=== PATIENT | female | born 1990 | race Caucasian/White ===

== ENCOUNTER 2022-11-23 12:00 | Outpatient (RCR) | payer MEDICARE, MEDICAID, SELFPAY ==
--- NOTE | 2022-11-22 07:18 | HO.PHP ---
Clients case was reviewed and opened today in treatment team.
[2022-11-22 12:23] VITALS: BP 116/66; PULSE 80; TEMP 37.6
[2022-11-22 12:26] VITALS: BMI 20.5
--- NOTE | 2022-11-22 13:17 | PC.ADMIT ---
Patient is a 32 year old female who was referred to [facility] from [facility] where patient participated in tx from 10/10-10/30/22. Patient reports depression with passive SI, denied plan or intent, increased anxiety and feeling overwhelmed. Reports taking a leave of absence from her job d/t her symptoms. 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 She feels she is unable to handle working. Has difficulty keeping a job and fears she will never be able to work and support herself d/t her symptoms. Patient reports she has been hitting herself since 2018. She also reports struggling with many medical complaints and feeling frustrated as she reports she is not getting any answers from medical coordinator pesticide use she has seen. She reports seeing recently a neurologist for migraines, seeing PCP for fast heart rate, and has an upcoming appointment with an ENT for difficulty swallowing certain foods as she gags when the food is in her mouth. Reports history of Jaw pain however not currently and her dentist referred her to Physical therapy. Patient reports she recently fired her therapist as it was not a good fit. She reports she has been doing DBT at [facility] for years, however she is unsure she wants to continue at this time. Patient is alert and oriented x4. Calm and cooperative. Presented with depressed mood and anxious affect. Reports passive SI, no plan or intent. Patient given a copy of her safety plan if needed. Reviewed her safety plan with her.
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
--- NOTE | 2022-11-23 07:17 | HO.PHP ---
Clients case was reviewed and opened today in treatment team.
== END 2022-11-23 23:59 | disposition home or self-care (01) ==
LOC: HO.PHPA 12:00
PROVIDERS: Visit Provider Psychiatry & Neurology Psychiatry
DX: F31.81 Bipolar II disorder (principal); F41.1 Generalized anxiety disorder; F90.2 Attention-deficit hyperactivity disorder, combined type; Z79.899 Other long term (current) drug therapy
CPT/HCPCS: 90791; 90853

== ENCOUNTER 2023-03-27 10:28 | Outpatient (AMB) | payer MEDICAID, SELFPAY ==
[2023-03-27 10:31] VITALS: BMI 20.1
--- NOTE | 2023-03-27 10:31 | MHC.AMNUTRGE ---
Intake VS Expanded 03/27/23 10:31 03/27/23 12:26 Height 5 ft 5 in 5 ft 5 in Weight 120 lb 13.013 oz 121 lb BMI 20.1 20.1 Intake Visit Reasons: Dysphagia Allergies topiramate [From Topamax] Adverse Reaction (Verified 11/22/22 12:18) Suicidal tramadol Adverse Reaction (Verified 11/22/22 12:18) Fainting HPI Nutrition Presentation Details Pt presents for MNT initial visit for dysphagia. The Pt was referred by PCP, ROCÍO Delacruz from [facility] Pt reports having met with ENT in 02/2023 and had swallow evaluation yesterday will have appt in the next couple of weeks to discuss results. Pt has hx of bipoloar disorder, ADHD and depression. Pt reports baseline wt at 130 lbs ( when taking topomax) , prior to that was on risperidone and her weight was 145 lbs ) . Pt reports following up with psychiatrist on a regular basis, was on rehab in 11/2022 at [facility] [place]. Pt verbalizes comfortable weight at 130 lbs. Pt reports she is unsure what causes what. She reports eating a variety of foods and then not able to swallow or gagging after having eaten part of the meal (example able to eat and tolerate croissant with egg, chaves and cheese but not hash browns. Pt also reports not choosing foods she used to have before due to concerns that she may not be able to tolerate them (ex meatloaf/potatoes). Pt denies vomiting, denies diarrhea. Reports having daily soft bowel movement 24 hr food recall B: applesauce and oatmeal made with whole milk (sometimes adds raisins and reports doing well with raisins) or Mongolian muffin with peanut butter and latte with whole milk and sugar L: croissant (with egg chaves, cheese ) reports eating it with no problem, but not able to eat hash brown, drinks tea or at hot table - ruddy santo ( 1/2 of the panini) ice tea peach flavor or edgardo abena D: if not eating home made meal then will have peanut butter sandwich or cereal with whole milk snack on ensure - now will be switching to higher calorie ensure 350 vs 180 calories Physical activity: swimming 3 days and 2 days a week ( 30 -45 min) , reports slow movements like stretches, no jumping ETOH/SMoking: denies WJD-Gqiyclm-Nf.Jeor Equation Height 5 ft 5 in Weight 121 lb Resting Metabolic Rate 1266.65 Calculated Activity Level Moderate Activity Calories Needed to Maintain Weight 1963.31 Diagnosis Nutrition problem #1 unintended weight loss (Pt reports wt loss of 20 lbs since Jul 2022) As related to (etiology) #1 dysphagia, aversion to food/beverage and inadequate oral intake As evidenced by (sign/symptom) #1 food recall and weight loss Most Recent Diabetes Results: No Data to Display [facility] Medical History Anal fissure IBS (irritable bowel syndrome) Jaw pain Migraines Overactive bladder Pelvic floor dysfunction in female Social History Household Members: Significant Other Patient Tobacco Use Status: Never used Tobacco Assessment & Plan Assessment & Plan (1) Dysphagia, unspecified: Comment: Pt reports having pending results from swallow evaluation 03/26/23 at [facility] Code(s): R13.10 - Dysphagia, unspecified Qualifiers: Dysphagia type: unspecified Qualified Code(s): R13.10 - Dysphagia, unspecified Plan wt: 55 kg Est kcal needs as per MSJ: 2000 + 500/1000 (40% carb, 30% protein/fat) Est fluid needs as per 25 ml/d: 1400 Est prot per day as per 1 g/kg bw: 55 Recommend fiber intake : 8-10 g per day and gradually increase to 25-28 g per day for women and 35-38 g for men or as tolerated Recommend sodium intake per day : less than 2000 mg Educated patient on: ( R = reviewed V = verbalizes understanding N/R = needs review N/A = not applicable Choosing soft meals, snacks and increasing protein foods and adding flavors to foods to prevent further weight loss Discussed role of choosing variety of foods and including soft protein foods in diet Benefits of protein in diet Enhancing food flavors for better tolerance work on prevention of weight loss via soft, varied foods sources Patient Instructions: Have 3 meals a day and include snack in between Chew foods well prior to swallowing Include soft protein sources of foods in your meals, example make pancakes with eggs and whole milk instead of making them with water. Add syrup to moisten it. Have smoothie at lunch and dinner instead of tea see list of soft meals and snacks with protein sources of foods. Add condiments/gravies to foods to moisten and to enhance flavors like ketchup to potatoes Have ensure enlive once a day in between meals keep a record of your meals and bring to next follow up for review Coding Level of Care Code Nutr Indiv Intake (82721) Diagnoses Dysphagia, unspecified type R13.10 Dysphagia type: unspecified Time Spent (min) 35
[2023-03-27 12:26] VITALS: BMI 20.1
== END 2023-03-27 11:24 | disposition home or self-care (01) ==
LOC: HO.ENCR 10:28
PROVIDERS: Visit Provider Dietitian, Registered
DX: R13.10 Dysphagia, unspecified (principal)

== ENCOUNTER → 2023-03-27 10:28 | Outpatient (BNVA) | payer MEDICARE, MEDICAID, SELFPAY | PROVIDERS: Visit Provider Dietitian, Registered | DX: R13.10 Dysphagia, unspecified (principal); Z71.3 Dietary counseling and surveillance | CPT/HCPCS: 97802 ==

== ENCOUNTER 2023-05-06 10:25 | Outpatient (AMB) | payer MEDICAID, SELFPAY ==
[2023-05-06 10:30] VITALS: BMI 20.8
--- NOTE | 2023-05-06 10:30 | MHC.AMNUTRGE ---
Intake VS Expanded 05/06/23 10:30 Height 5 ft 5 in Weight 125 lb 3.561 oz BMI 20.8 Intake Visit Reasons: Dysphagia Allergies topiramate [From Topamax] Adverse Reaction (Verified 03/27/23 16:19) Suicidal tramadol Adverse Reaction (Verified 03/27/23 16:19) Fainting tramadol Allergy (Mild, Uncoded 03/27/23 16:19) Fainting HPI Nutrition Presentation Details Pt presents for MNT follow up for dysphagia . The Pt was referred by ROCÍO Caraballo from [facility]. Pt reports results of barium swallow done in 03/2023 were all normal and reports she was found to have SMA ,unknown if caused by initial weight loss Pt denies vomiting, denies diarrhea, denies constipation -reports having a daily bowel movement Pt reports doing ok with most foods, gags on bananas, butternut squash consecutively. Reports feeling full too fast when consuming sandwiches as example. Pt brings pictures of foods she is consuming. Pt is choosing protein shakes 1-2 a day , having cereals with whole milk (special k, oatmeal) or butternut squash pudding or chicken noodles soups sandwiches, drinks water with meals or lemonade Most of the meals in pictures are soft meals (shakes, cereals, puddings, yogurts) which she finds easy to prepare and eat. Pt reports working part times, meals are either prepare by self (easy/microwavable types of meals) , made at rest or evening meal prepared by her mom Pt reports buying sand and eating 50% , gets full fast- then forgets to eat the rest later. c/o expense of meal supplements Most Recent Diabetes Results: No Data to Display [facility] Medical History Anal fissure IBS (irritable bowel syndrome) Jaw pain Migraines Overactive bladder Pelvic floor dysfunction in female Social History (System 03/27/23 @ 16:19 by Evette Marcano) Household Members: Significant Other Patient Tobacco Use Status: Never used Tobacco Assessment & Plan Assessment & Plan (1) Dysphagia, unspecified: Comment: Pt reports barium swallow in 03/2023 at [facility] was normal Code(s): R13.10 - Dysphagia, unspecified Qualifiers: Dysphagia type: unspecified Qualified Code(s): R13.10 - Dysphagia, unspecified Plan wt: 55 kg Est kcal needs as per MSJ: 2000 + 500/1000 Increase calories by 500 from a variety of foods easily tolerated by Pt Est fluid needs as per 25-30 ml/d: 1400 -1700 (choosing a variety of fluids with calories Est prot per day as per 1 g/kg bw: 55 Recommend fiber intake : 8-10 g per day and gradually increase to 25-28 g per day for women and 35-38 g for men or as tolerated Recommend sodium intake per day : less than 2000 mg Educated patient on: ( R = reviewed V = verbalizes understanding N/R = needs review N/A = not applicable Choosing soft meals, snacks and increasing protein foods and adding flavors to foods to prevent further weight loss Discussed role of choosing variety of foods and including soft protein foods in diet Benefits of protein in diet Enhancing food flavors for better tolerance work on prevention of weight loss via soft, varied foods sources Patient Instructions: Continue to gradually increase calories and nutrients in your foods by : - adding eggs /soft tofu to chicken noodle soups - add oils/mcghee/butter to sandwiches which can help to soften them -have milkshakes (milk/ice cream/fruits/peanut butter/yogurt -see recipe ideas -Have beverages with nutrients: add carnation instant breakfast to milk , have fruit juices ,milk shakes as examples - ok to include an occ pastry which can help with increasing appetite goal wt by next follow up 3-4 lbs Coding Level of Care Code Nutr Indiv Subseq (55013) Diagnoses Dysphagia, unspecified type R13.10 Dysphagia type: unspecified Time Spent (min) 30
== END 2023-05-06 11:15 | disposition home or self-care (01) ==
PROVIDERS: Visit Provider Dietitian, Registered
DX: R13.10 Dysphagia, unspecified (principal)

== ENCOUNTER → 2023-05-06 10:25 | Outpatient (BNVA) | payer MEDICARE, MEDICAID, SELFPAY | PROVIDERS: Visit Provider Dietitian, Registered | DX: R13.10 Dysphagia, unspecified (principal) | CPT/HCPCS: 97803 ==

== ENCOUNTER 2023-06-17 09:27 | Outpatient (AMB) | payer MEDICAID, SELFPAY ==
[2023-06-17 09:43] VITALS: BMI 20.6
--- NOTE | 2023-06-17 09:43 | MHC.AMNUTRGE ---
Intake VS Expanded 06/17/23 09:43 Height 5 ft 5 in Weight 123 lb 14.397 oz BMI 20.6 Intake Visit Reasons: monitor wt Allergies topiramate [From Topamax] Adverse Reaction (Verified 03/27/23 16:19) Suicidal tramadol Adverse Reaction (Verified 03/27/23 16:19) Fainting tramadol Allergy (Mild, Uncoded 03/27/23 16:19) Fainting HPI Nutrition Presentation Details Pt presents for MNT f/u for dysphagia , unspecified. PT was referred by ROCÍO Loomis, PCP [facility] Pt reports doing well choosing soft foods and is working on including soft protein foods in each meal. Pt reports carrying nutritional supplements to prevent self from skipping meals, and may have 1 meal supplement once a day. Reports dysphagia continues unspecified, Pt reports her barium swallow on 03/2023 at [facility] was normal and is avoiding foods known to cause difficulties swallowing (hashbrowns) food frequency dairy: 4 servings/d (yogurt, milk/milk alternatives) fruits: 1-2/d vegetables : 3-4 x/wk (choosing cooked veg , added in soups protein foods: fish 1 x/wk, chicken , egg salad, tolentino soup, meal supplements (4-6 oz/d beverages: may have 2 cups of fluid per day (mostly water) Most Recent Diabetes Results: No Data to Display [facility] Medical History Anal fissure IBS (irritable bowel syndrome) Jaw pain Migraines Overactive bladder Pelvic floor dysfunction in female Social History (System 03/27/23 @ 16:19 by Evette Marcano) Household Members: Significant Other Patient Tobacco Use Status: Never used Tobacco Assessment & Plan Assessment & Plan (1) Dysphagia, unspecified: Comment: Pt reports barium swallow in 03/2023 at [facility] was normal Code(s): R13.10 - Dysphagia, unspecified Qualifiers: Dysphagia type: unspecified Qualified Code(s): R13.10 - Dysphagia, unspecified Plan Pt's weight fluctuating between 123-125 lbs since 11/2022. Pt reports she is including a variety of foods and working on including soft protein foods and preventing self from skipping meals. Is wt: 55 kg Est kcal needs as per MSJ: 2000 + 500/1000 Include a variety of soft foods, protein foods Est fluid needs as per 25-30 ml/d: 1400 -1700 (choosing a variety of fluids with calories Est prot per day as per 1 g/kg bw: 55 Recommend fiber intake : 8-10 g per day and gradually increase to 25-28 g per day for women and 35-38 g for men or as tolerated Recommend sodium intake per day : less than 2000 mg Educated patient on: ( R = reviewed V = verbalizes understanding N/R = needs review N/A = not applicable Choosing soft meals, snacks and increasing protein foods and adding flavors to foods to prevent further weight loss Discussed role of choosing variety of foods and including soft protein foods in diet Benefits of protein in diet Enhancing food flavors for better tolerance work on prevention of weight loss via soft, varied foods sources Patient Instructions: Include omega 3 fatty acids , include fish at least twice/wk , flaxseed ground, ground smooth nut butters /seeds Keep hydrated by having juices, milk , have at least 1 cup of fluid per meal (juice/milk preferred) Coding Level of Care Code Nutr Indiv Subseq (05311) Diagnoses Dysphagia, unspecified type R13.10 Dysphagia type: unspecified Time Spent (min) 30
== END 2023-06-17 10:07 | disposition home or self-care (01) ==
PROVIDERS: Visit Provider Dietitian, Registered
DX: R13.10 Dysphagia, unspecified (principal)

== ENCOUNTER → 2023-06-17 09:27 | Outpatient (BNVA) | payer MEDICARE, MEDICAID, SELFPAY | PROVIDERS: Visit Provider Dietitian, Registered | DX: R13.10 Dysphagia, unspecified (principal); Z71.3 Dietary counseling and surveillance | CPT/HCPCS: 97803 ==

== ENCOUNTER 2023-12-17 09:27 | Outpatient (AMB) | payer MEDICAID, SELFPAY ==
[2023-12-17 09:43] VITALS: BMI 20.8
--- NOTE | 2023-12-17 09:43 | MHC.AMNUTRGE ---
VS Expanded 12/17/23 09:43 Height 5 ft 5 in Weight 125 lb 3.561 oz BMI 20.8 Intake Visit Reasons: Monitor weight/LVM Allergies topiramate [From Topamax] Adverse Reaction (Verified 03/27/23 16:19) Suicidal tramadol Adverse Reaction (Verified 03/27/23 16:19) Fainting tramadol Allergy (Mild, Uncoded 03/27/23 16:19) Fainting Nutrition Presentation Details: Pt presents for MNT f/u for dysphagia Pt reports doing well overall, working on having soft foods frequent throughout the day and working on not omiting meals. Reports keeping physically active: swimming 2 times a week and dancing class 3 times a week May have a meal supplement twice a week as snack with applesauce (250 jahaira supplement with applesauce) Reports typically having B cereal with milk whole (raisin bran with whole milk) and drinks [employer] juice, v8 mixed with fruit L: sand (ham/cheese or peanut butter and jelly ) drinks juice Dinner : burritos or pizza (typically frozen ) or may have pasta with meat sauce - may buy already made snack: fruits/ice cream, yogurt, soft crackers or cereal with milk no questions or concerns expressed at this time does not take vitamins does take a gummy probiotic daily BS Monitoring Most Recent Diabetes Results: No Data to Display [facility] Medical History Anal fissure IBS (irritable bowel syndrome) Jaw pain Migraines Overactive bladder Pelvic floor dysfunction in female Social History (System 03/27/23 @ 16:19 by Evette Marcano) Household Members: Significant Other Patient Tobacco Use Status: Never used Tobacco Assessment & Plan Assessment & Plan (1) Dysphagia, unspecified: Comment: Pt reports barium swallow in 03/2023 at [facility] was normal Code(s): R13.10 - Dysphagia, unspecified Category: Medical Qualifiers: Dysphagia type: unspecified Qualified Code(s): R13.10 - Dysphagia, unspecified Plan Pt's weight fluctuating between 123-125 lbs since 11/2022. Pt reports she is including a variety of foods and working on including soft protein foods and preventing self from skipping meals. wt: 56.8 kg (12/2023) Est kcal needs as per MSJ: 2000 + 500/1000 Include a variety of soft foods and protein foods Est fluid needs as per 25-30 ml/d: 1400 -1700 (choosing a variety of fluids with calories Est prot per day as per 1 g/kg bw: 55 Recommend fiber intake : 8-10 g per day and gradually increase to 25-28 g per day for women and 35-38 g for men or as tolerated Recommend sodium intake per day : less than 2000 mg Educated patient on: ( R = reviewed V = verbalizes understanding N/R = needs review N/A = not applicable Choosing soft meals, snacks and increasing protein foods and adding flavors to foods to prevent further weight loss Discussed role of choosing variety of foods and including soft protein foods in diet Benefits of protein in diet Enhancing food flavors for better tolerance work on prevention of weight loss via soft, varied foods sources Patient Instructions: Continue Including a variety of foods in your diet (pastas/ cereals, quinoa, poultry, tofu/eggs/beef) following healthy plate method Keep hydrated by having juices/smoothies/milk Continue working on having 3 meals and snacks in between to prevent weight loss. Coding Level of Care Code Nutr Indiv Subseq (10924) Diagnoses Dysphagia, unspecified type R13.10 Dysphagia type: unspecified Time Spent (min) 30
== END 2023-12-17 10:07 | disposition home or self-care (01) ==
PROVIDERS: Visit Provider Dietitian, Registered
DX: R13.10 Dysphagia, unspecified (principal)

== ENCOUNTER → 2023-12-17 09:27 | Outpatient (BNVA) | payer MEDICAID, SELFPAY | PROVIDERS: Visit Provider Dietitian, Registered | DX: R13.10 Dysphagia, unspecified (principal); Z71.3 Dietary counseling and surveillance | CPT/HCPCS: 97803 ==

== ENCOUNTER 2024-04-17 12:48 | Outpatient (REF) | payer MEDICARE, MEDICAID, SELFPAY ==
--- NOTE | ~2024-04-17 | XR_ITS ---
EXAMINATION: LEFT ELBOW, RIGHT ELBOW, LEFT WRIST, RIGHT WRIST CLINICAL INDICATION: Vitamin D deficiency unspecified, patient states pain and cramping of both hands and elbows. TECHNIQUE: 3 views of each elbow. 4 views of each hand/wrist. COMPARISON: None available. FINDINGS: RIGHT ELBOW: 3 views. Alignment maintained. No acute displaced fracture. LEFT ELBOW: 3 views. Alignment maintained. No displaced fracture. RIGHT HAND WRIST: 4 views. Mild degenerative changes in the first carpometacarpal joint and triscaphe joint with joint space narrowing and hypertrophic change. Mild degenerative changes in the first metacarpophalangeal joint. LEFT HAND AND WRIST: 4 views. Punctate calcification adjacent to the left third metacarpal head. Mild degenerative changes in the first carpometacarpal joint and triscaphe joint with joint space narrowing and hypertrophic change. Mild degenerative changes in the first metacarpophalangeal joint. XR/XR hand wrist RT IMPRESSION: 1. No acute displaced fracture of the bilateral elbows and hands appreciated. 2. Mild degenerative changes in the bilateral hands and wrists as detailed above. Electronically signed by: Raquel Painter MD 05/13/2024 10:16 AM EDT
--- NOTE | ~2024-04-17 | XR_ITS ---
EXAMINATION: LEFT ELBOW, RIGHT ELBOW, LEFT WRIST, RIGHT WRIST CLINICAL INDICATION: Vitamin D deficiency unspecified, patient states pain and cramping of both hands and elbows. TECHNIQUE: 3 views of each elbow. 4 views of each hand/wrist. COMPARISON: None available. FINDINGS: RIGHT ELBOW: 3 views. Alignment maintained. No acute displaced fracture. LEFT ELBOW: 3 views. Alignment maintained. No displaced fracture. RIGHT HAND WRIST: 4 views. Mild degenerative changes in the first carpometacarpal joint and triscaphe joint with joint space narrowing and hypertrophic change. Mild degenerative changes in the first metacarpophalangeal joint. LEFT HAND AND WRIST: 4 views. Punctate calcification adjacent to the left third metacarpal head. Mild degenerative changes in the first carpometacarpal joint and triscaphe joint with joint space narrowing and hypertrophic change. Mild degenerative changes in the first metacarpophalangeal joint. XR/XR elbow RT min 3V IMPRESSION: 1. No acute displaced fracture of the bilateral elbows and hands appreciated. 2. Mild degenerative changes in the bilateral hands and wrists as detailed above. Electronically signed by: Raquel Painter MD 05/13/2024 10:16 AM EDT
--- NOTE | ~2024-04-17 | XR_ITS ---
EXAMINATION: LEFT ELBOW, RIGHT ELBOW, LEFT WRIST, RIGHT WRIST CLINICAL INDICATION: Vitamin D deficiency unspecified, patient states pain and cramping of both hands and elbows. TECHNIQUE: 3 views of each elbow. 4 views of each hand/wrist. COMPARISON: None available. FINDINGS: RIGHT ELBOW: 3 views. Alignment maintained. No acute displaced fracture. LEFT ELBOW: 3 views. Alignment maintained. No displaced fracture. RIGHT HAND WRIST: 4 views. Mild degenerative changes in the first carpometacarpal joint and triscaphe joint with joint space narrowing and hypertrophic change. Mild degenerative changes in the first metacarpophalangeal joint. LEFT HAND AND WRIST: 4 views. Punctate calcification adjacent to the left third metacarpal head. Mild degenerative changes in the first carpometacarpal joint and triscaphe joint with joint space narrowing and hypertrophic change. Mild degenerative changes in the first metacarpophalangeal joint. XR/XR elbow LT min 3V IMPRESSION: 1. No acute displaced fracture of the bilateral elbows and hands appreciated. 2. Mild degenerative changes in the bilateral hands and wrists as detailed above. Electronically signed by: Raquel Painter MD 05/13/2024 10:16 AM EDT
--- NOTE | ~2024-04-17 | XR_ITS ---
EXAMINATION: LEFT ELBOW, RIGHT ELBOW, LEFT WRIST, RIGHT WRIST CLINICAL INDICATION: Vitamin D deficiency unspecified, patient states pain and cramping of both hands and elbows. TECHNIQUE: 3 views of each elbow. 4 views of each hand/wrist. COMPARISON: None available. FINDINGS: RIGHT ELBOW: 3 views. Alignment maintained. No acute displaced fracture. LEFT ELBOW: 3 views. Alignment maintained. No displaced fracture. RIGHT HAND WRIST: 4 views. Mild degenerative changes in the first carpometacarpal joint and triscaphe joint with joint space narrowing and hypertrophic change. Mild degenerative changes in the first metacarpophalangeal joint. LEFT HAND AND WRIST: 4 views. Punctate calcification adjacent to the left third metacarpal head. Mild degenerative changes in the first carpometacarpal joint and triscaphe joint with joint space narrowing and hypertrophic change. Mild degenerative changes in the first metacarpophalangeal joint. XR/XR hand wrist LT IMPRESSION: 1. No acute displaced fracture of the bilateral elbows and hands appreciated. 2. Mild degenerative changes in the bilateral hands and wrists as detailed above. Electronically signed by: Raquel Painter MD 05/13/2024 10:16 AM EDT
[2024-04-17 14:21] LABS: MANUAL DIFF FLAG NO
[2024-04-17 14:37] LABS: Eosinophils Absolute Auto 0.1 X10*3/uL (0.0-0.4); Eosinophils Percent Auto 3.2 % (0-4); Hematocrit 35.2 % (37.0-47.0); Hemoglobin 12.7 g/dl (12.0-16.0); Imm Gran Abs Auto 0.01 X10*3/uL (0.00-0.03); Imm Gran Pct Auto 0.2 % (0.0-0.4); Lymphocytes Absolute Auto 1.3 X10*3/uL (1.2-4.9); Lymphocytes Percent Auto 29.7 % (20-40); Mean Corpuscular HGB Conc 36.1 g/dl (31.0-35.0); Mean Corpuscular Hemoglobin 32.4 pg (27.0-33.0); Mean Corpuscular Volume 89.8 fL (80.0-98.0); Mean Platelet Volume 10.3 fL (9.4-12.3); Monocytes Absolute Auto 0.4 X10*3/uL (0.1-1.2); Monocytes Percent Auto 9.2 % (2-11); Neutrophils Absolute Auto 2.5 x10*3/uL (2.0-8.3); Neutrophils Percent Auto 57.7 % (45-73); Platelet Count 202 X10*3/uL (160-400); Red Blood Count 3.92 X10*6/uL (4.20-5.50); Red Cell Distribution Width 12.3 % (11.0-16.0); White Blood Count 4.3 X10*3/uL (4.8-10.8)
[2024-04-17 14:58] LABS: Rheumatoid Factor < 13.0 IU/mL (<15.0)
[2024-04-17 14:59] LABS: Alanine Aminotransferase 8 U/L (0-31); Albumin Level 4.3 g/dL (3.5-5.0); Alkaline Phosphatase 34 U/L (39-117); Anion Gap 10 (12-20); Aspartate Amino Transferase 13 U/L (5-31); Bilirubin Total 0.6 mg/dL (0.0-1.0); Blood Urea Nitrogen 10 mg/dL (9-16); C Reactive Protein < 0.10 mg/dL (< or = 0.50); Calcium 9.7 mg/dL (8.4-10.2); Carbon Dioxide 26 mmol/L (22-29); Chloride 107 mmol/L (96-108); Estimated Glomerular Filt Rate > 60; Glucose Random 94 mg/dL (60-115); Potassium 4.1 mmol/L (3.3-5.1); Sodium 139 mmol/L (135-145); Total Protein 7.3 g/dL (6.5-8.0)
[2024-04-17 19:43] LABS: Erythrocyte Sedimentation Rate 3 MM/HR (0-20)
[2024-04-20 18:37] LABS: Complement C3 104 mg/dL (83-193)
[2024-04-21 14:58] LABS: Cyclic Citrullinated Peptide <16 UNITS
[2024-04-23 14:28] LABS: Anti DNA DS Antibody <1 IU/mL; SM/Ribonucleoprotein Ab <1.0 NEG AI (<1.0 NEG); Smith Protein <1.0 NEG AI (<1.0 NEG)
[2024-04-23 15:08] LABS: Vitamin D 25-OH, D2 <4 ng/mL; Vitamin D 25-OH, D3 39 ng/mL; Vitamin D 25-OH, Total 39 ng/mL (30-100)
[2024-04-27 16:08] LABS: Centromere Protein A Ab <11 SI (<11); Centromere Protein B Ab <11 SI (<11); Fibrillarin Ab <11 SI (<11); PM SCL 100 Ab <11 SI (<11); PM SCL 75 Ab <11 SI (<11); RNA Polymerase III RP11 Ab <11 SI (<11); RNA Polymerase III RP155 Ab <11 SI (<11); SCL-70 Extractable Nuclear Ab <11 SI (<11); Th-To Ab <11 SI (<11); U1 SNRNP RNP 70KD <11 SI (<11); U1 SNRNP RNP A <11 SI (<11); U1 SNRNP RNP C <11 SI (<11)
== END 2024-04-17 12:49 | disposition home or self-care (01) ==
LOC: HO.XRAY 12:48
PROVIDERS: PCP Nurse Practitioner Primary Care; Visit Provider Student in an Organized Health Care Education/Training Program
DX: E55.9 Vitamin D deficiency, unspecified (principal); I73.00 Raynaud's syndrome without gangrene; M25.50 Pain in unspecified joint
CPT/HCPCS: 36415; 73080; 73110; 73130; 80053; 82306; 84182; 85025; 85652; 86140; 86160; 86200; 86225; 86235; 86431; 99202

== ENCOUNTER 2024-04-17 12:48 | Outpatient (AMB) | payer MEDICARE, MEDICAID, SELFPAY ==
[2024-04-17 12:52] VITALS: BP 108/70; PULSE 68; O2SAT 99; BMI 21.1
--- NOTE | 2024-04-17 12:52 | A.OFFVIS_ITS ---
Vital Signs 04/17/24 12:52 Height 5 ft 5 in Weight 126 lb 12.253 oz BMI 21.1 BP 108/70 Blood Pressure Location Lt brachial Position Sitting Pulse 68 Pulse Source Pulse Oximeter Pulse Oximetry (%) 99 Oxygen Delivery Method Room Air Intake Visit Reasons: Raynauds Intake Note: Patient is a new patient externally referred by PCP for Raynaud's. Allergies topiramate [From Topamax] Adverse Reaction (Verified 04/17/24 12:53) Suicidal tramadol Adverse Reaction (Verified 04/17/24 12:53) Fainting tramadol Allergy (Mild, Uncoded 04/17/24 12:53) Fainting HPI Comments Details: Patient is a 33-year-old female with overactive bladder/urinary incontinence status post InterStim implant (03/2022 and 04/2022), ?superior mesenteric artery syndrome (same not confirmed since patient maintaining weight), migraines, benign cyclic neutropenia, chronic neck pain and Primary Raynaud's Disease. Presents for evaluation of joint pain. Provider notes reviewed: Note from 11/22/2023. Provider Lacy De La Fuente Patient reports for the past 1-2 years she has been slowly experiencing a vari ety of symptoms. Worsening fatigue and overall weakness that sometimes she feels that she can not get out of bed in the morning. Pain involving her elbows, her hands and her knees. She states that the pain is usually present throughout the day can not determine if the pain is worse in the morning or in the evening. Denies prolonged morning stiffness or any morning stiffness. She is able to open and close her hands in the morning. Also denies swelling to any of her joints. She denies skin tightening, photosensitivity, rashes, alopecia, proximal muscle weakness, inability to walk up stairs or reach for items over her head. She does have a history of reflux which was confirmed with endoscopy. Has never been . No history of PE or DVTs. No oral or nasal ulcers. [facility] Medical History Anal fissure IBS (irritable bowel syndrome) Jaw pain Migraines Overactive bladder Pelvic floor dysfunction in female Social History (System 03/27/23 @ 16:19 by Evette Marcano) Household Members: Significant Other Patient Tobacco Use Status: Never used Tobacco Review of Systems Const Details: Review of Systems Constitutional: Denies fever, chills, weight loss ENT: Denies vision changes, eye pain or eye redness, dental caries, dry mouth GI: Denies nausea, vomiting, diarrhea, abdominal pain, change in BM Pulm: Denies SOB, GARCIA, hemoptysis, wheezing Cards: Denies chest pain, palpitations Skin: Denies rash, nail changes, photosensitivity, [employer]: Denies headaches, weakness, paresthesias, recurrent falls MSK: Complains of joint pain. Denies joint swelling, muscle weakness, bone pain All other systems reviewed and are unremarkable except noted above Physical Exam Vital Signs: Last Vital Signs Pulse 68 04/17/24 12:52 BP 108/70 04/17/24 12:52 Pulse Ox 99 04/17/24 12:52 Oxygen Delivery Method Room Air 04/17/24 12:52 BMI result Body Mass Index 21.1 Const Other: Physical Examination Patient well appearing and in no apparent painful distress Able to rise from chair without support. ?Gait normal. Constitutional: ?Mucous membranes pink and moist patient alert and cooperative HEENT: ?Conjunctiva and sclera clear. ?Pupils equal round and reactive to light. ?No lymphadenopathy. ?Normal dentition. Resp: ?Normal respiratory effort and able to speak in complete sentences. ?Clear to auscultation bilaterally. ?No crackles, rales, rhonchi, wheezes heard. Cards: ?Regular rate and rhythm. ?S1 and S2 heard no murmurs. ?Radial pulses intact bilaterally MSK: ?No deformity, swelling, abnormalities noted to bilateral hands. ?No evidence of synovitis. ?Able to move all joints with full range of motion, without limitation. Skin: Normal capillary nail folds Results Reviewed Results Reviewed: No labs available for review. Assessment & Plan Assessment & Plan (1) Raynaud's disease without gangrene: Code(s): I73.00 - Raynaud's syndrome without gangrene Category: Medical Plan: #Primary Raynaud's Disease Patient with likely primary Raynaud's disease. Patient states that this is not currently bothering her and she manages it conservatively. No further medication is warranted at this time. (2) Polyarthralgia: Code(s): M25.50 - Pain in unspecified joint Plan: #Polyarthralgia Patient with polyarthralgia. At this time low suspicion for an autoimmune connective tissue disease given that the patient does not have any evidence of synovitis or any involvement of the MCPs, PIPs DIPs, wrists or feet. She also has no signs or symptoms to suggest secondary Raynaud's, no evidence of scleroderma, no evidence of myositis, no evidence of lupus. I had a long discussion with the patient about other non rheumatic causes for her symptoms including ensuring that she is eating an adequate diet. She states that at 1 point she was only drinking ensure which I explained to have the macro nutrients but micronutrients may not be all covered with the ensure. Still do due diligence and check autoimmune related labs. We will see again in 2 weeks. Plan I spent 45 minutes reviewing the record and labs, seeing the patient, discussing the treatment plan and documenting in the medical record Orders: Orders XR elbow LT min 3V Today E55.9 - Vitamin D deficiency, unspecified, I73.00 - Raynaud's syndrome without gangrene Anti DNA DS Antibody Today E55.9 - Vitamin D deficiency, unspecified, I73.00 - Raynaud's syndrome without gangrene Comprehensive Met. Panel Today E55.9 - Vitamin D deficiency, unspecified, I73.00 - Raynaud's syndrome without gangrene C Reactive Protein Today E55.9 - Vitamin D deficiency, unspecified, I73.00 - Raynaud's syndrome without gangrene Vitamin D 25-OH (D2 and D3) Today E55.9 - Vitamin D deficiency, unspecified, I73.00 - Raynaud's syndrome without gangrene Rheumatoid Factor Today E55.9 - Vitamin D deficiency, unspecified, I73.00 - Raynaud's syndrome without gangrene Scleroderma 12 Panel Today E55.9 - Vitamin D deficiency, unspecified, I73.00 - Raynaud's syndrome without gangrene XR elbow RT min 3V Today E55.9 - Vitamin D deficiency, unspecified, I73.00 - Raynaud's syndrome without gangrene XR hand wrist LT Today E55.9 - Vitamin D deficiency, unspecified, I73.00 - Raynaud's syndrome without gangrene XR hand wrist RT Today E55.9 - Vitamin D deficiency, unspecified, I73.00 - Raynaud's syndrome without gangrene Erythrocyte Sedimentation Rate Today E55.9 - Vitamin D deficiency, unspecified, I73.00 - Raynaud's syndrome without gangrene Anti Extractable Nuclear Ag Today E55.9 - Vitamin D deficiency, unspecified, I73.00 - Raynaud's syndrome without gangrene Complete Blood Count Auto Diff Today E55.9 - Vitamin D deficiency, unspecified, I73.00 - Raynaud's syndrome without gangrene Complement C4 Today E55.9 - Vitamin D deficiency, unspecified, I73.00 - Raynaud's syndrome without gangrene Complement C3 Today E55.9 - Vitamin D deficiency, unspecified, I73.00 - Raynaud's syndrome without gangrene Cyclic Citrullinated Peptide Today E55.9 - Vitamin D deficiency, unspecified, I73.00 - Raynaud's syndrome without gangrene Coding Level of Care Code New Pt Level 4 (16892) Diagnoses Raynaud's disease without gangrene I73.00 Polyarthralgia M25.50
== END 2024-04-17 14:01 | disposition home or self-care (01) ==
PROVIDERS: Visit Provider Student in an Organized Health Care Education/Training Program
DX: I73.00 Raynaud's syndrome without gangrene (principal); M25.50 Pain in unspecified joint
CPT/HCPCS: 99204

== ENCOUNTER 2024-05-06 09:35 | Outpatient (REF) | payer MEDICARE, MEDICAID, SELFPAY ==
[2024-05-06 12:40] LABS: Alkaline Phosphatase 31 U/L (39-117)
[2024-05-06 12:56] LABS: TSH reflex Free T4 2.57 uIU/mL (0.32-4.0)
[2024-05-06 12:59] LABS: Folate > 20.0 ng/mL (> or = 4.0); Vitamin B12 331 pg/mL (200-900)
[2024-05-07 22:44] LABS: Ceruloplasmin 32 mg/dL (14-48)
[2024-05-09 18:49] LABS: Copper, serum 122 mcg/dL (70-175)
[2024-05-10 23:38] LABS: Alkaline Phosphatase Bone 6.2 mcg/L (5.3-19.5)
[2024-05-11 10:13] LABS: Zinc 64 mcg/dL (60-130)
[2024-05-11 15:13] LABS: Vitamin B6 28.1 ng/mL (2.1-21.7)
[2024-05-12 12:54] LABS: Vitamin C 1.3 mg/dL (0.3-2.7)
[2024-05-12 22:28] LABS: Intrinsic Factor Antibodies Negative (Negative)
[2024-05-13 21:28] LABS: Alk.Phos Iso. Macrohepatic 0 % (<=0); Alk.Phos Isoenzymes Bone 40 % (28-66); Alk.Phos Isoenzymes Intest 0 % (1-24); Alk.Phos Isoenzymes Liver 60 % (25-69); Alk.Phos Isoenzymes Placental 0 % (<=0); Alk.Phos Isoenzymes Total 33 U/L (31-125)
== END 2024-05-06 09:36 | disposition home or self-care (01) ==
LOC: HO.LAB 09:35
PROVIDERS: PCP Nurse Practitioner Primary Care; Visit Provider Student in an Organized Health Care Education/Training Program
DX: I73.00 Raynaud's syndrome without gangrene (principal); R74.8 Abnormal levels of other serum enzymes
CPT/HCPCS: 36415; 82180; 82390; 82525; 82607; 82746; 83735; 84075; 84080; 84207; 84443; 84630; 86340; 99212

== ENCOUNTER 2024-05-06 09:35 | Outpatient (AMB) | payer MEDICARE, MEDICAID, SELFPAY ==
[2024-05-06 09:39] VITALS: BP 118/72; PULSE 80; O2SAT 100; BMI 21.1
--- NOTE | 2024-05-06 09:39 | A.OFFVIS_ITS ---
Vital Signs 05/06/24 09:39 Height 5 ft 5 in Weight 126 lb 8.725 oz BMI 21.1 BP 118/72 Blood Pressure Location Lt brachial Position Sitting Pulse 80 Pulse Source Pulse Oximeter Pulse Oximetry (%) 100 Oxygen Delivery Method Room Air Intake Visit Reasons: Follow up labs and XRs Intake Note: Patient presents today for follow up on labs and x-rays. She was last seen in the office on 04/17/[address] Aranda. Allergies topiramate [From Topamax] Adverse Reaction (Verified 05/06/24 09:41) Suicidal tramadol Adverse Reaction (Verified 05/06/24 09:41) Fainting tramadol Allergy (Mild, Uncoded 05/06/24 09:41) Fainting Medication List - Last Reconciled 05/06/24 by Kelly Aranda MD alum-mag hydroxide-simeth 200-200-20 mg/5 mL (Ayla-Lanta) 15 mL PO QID cetirizine 10 mg PO DAILY desogestrel-ethinyl estradiol 0.15-0.03 mg (Apri) 1 tab PO DAILY dicyclomine 10 mg PO Q6H PRN fluticasone propionate 50 mcg/actuation sprays intranasal L. acidophilus/Bifid. animalis 10 billion cell (Dialyvite Chewable Probiotic) tabs PO lamotrigine ER 200 mg PO DAILY melatonin 5 mg PO BEDTIME methylphenidate HCl ER 36 mg PO QAM mirabegron ER (Myrbetriq) 50 mg PO DAILY naproxen 500 mg PO DAILY ondansetron HCl mg PO pantoprazole 40 mg PO DAILY propranolol 40 mg PO BID sennosides (senna) 8.6 mg PO DAILY sumatriptan succinate 50 mg PO HPI Comments Details: Patient is a 33-year-old female with overactive bladder/urinary incontinence status post InterStim implant (03/2022 and 04/2022), ?superior mesenteric artery syndrome (same not confirmed since patient maintaining weight), migraines, benign cyclic neutropenia, chronic neck pain and Primary Raynaud's Disease. Presents for follow-up for her evaluation of polyarthralgias. Interval History: Last seen 04/17/2024. At that time she was establishing care for the evaluation of polyarthralgias. Workup including RF, CCP, MAUREEN, ESR/CRP, vitamin-D, MARY panel including scleroderma and Sjogren's antibodies all came back normal. The only concerning results were her low alkaline phosphatase and her low white blood cell count and red blood cell count. Of note she does have a diagnosis of benign cyclic neutropenia diagnosed by Hematology. Patient today reports that she feels the same. She denies easy bruising. Has started taking cesx-mlj-ijpxyxy vitamins. Denies recurrent fractures of the metatarsal bones, denies dental issues. She is also complaining of cramping to her hands after writing for a prolonged period of time. But denies any symptoms associated with numbness or tingling. She has had a nerve test which showed normal nerves without any evidence of neur opathy. Rheumatologic History: Presented for evaluation of polyarthralgias 04/17/2024. Initial History: Patient reports for the past 1-2 years she has been slowly experiencing a variety of symptoms. Worsening fatigue and overall weakness that sometimes she feels that she can not get out of bed in the morning. Pain involving her elbows, her hands and her knees. She states that the pain is usually present throughout the day can not determine if the pain is worse in the morning or in the evening. Denies prolonged morning stiffness or any morning stiffness. She is able to open and close her hands in the morning. Also denies swelling to any of her joints. She denies skin tightening, photosensitivity, rashes, alopecia, proximal muscle weakness, inability to walk up stairs or reach for items over her head. She does have a history of reflux which was confirmed with endoscopy. Has never been . No history of PE or DVTs. No oral or nasal ulcers. Current Rheumatology Medication(s): [facility] Medical History (Updated 05/06/24 @ 10:20 by Kelly Aranda MD) Low serum alkaline phosphatase Raynaud's disease without gangrene Pelvic floor dysfunction in female Anal fissure Overactive bladder Jaw pain IBS (irritable bowel syndrome) Migraines Social History (System 03/27/23 @ 16:19 by Evette Marcano) Household Members: Significant Other Patient Tobacco Use Status: Never used Tobacco Review of Systems Const Details: As per HPI Physical Exam Vital Signs: Last Vital Signs Pulse 80 05/06/24 09:39 BP 118/72 05/06/24 09:39 Pulse Ox 100 05/06/24 09:39 Oxygen Delivery Method Room Air 05/06/24 09:39 BMI result Body Mass Index 21.1 Const Other: Physical Examination Patient well appearing and in no apparent painful distress Able to rise from chair without support. ?Gait normal. Constitutional Mucous membranes pink and moist patient alert and cooperative HEENT Conjunctiva and sclera clear. ?Pupils equal round and reactive to light. ?No lymphadenopathy. ?Normal dentition. Respiratory System Normal respiratory effort and able to speak in complete sentences. ?Clear to auscultation bilaterally. ?No crackles, rales, rhonchi, wheezes heard. Cardiac System Regular rate and rhythm. ?S1 and S2 heard no murmurs. ?Radial pulses intact bila terally MSK No deformity, swelling, abnormalities noted to bilateral hands. ?No evidence of synovitis. ?Able to move all joints with full range of motion, without limitation. Hands:.??Normal pain-free range of motion without tenderness, swelling, increased warmth or erythema. Able to make a full fist and has a good cable tender strength. Wrists: Normal pain-free range of motion without tenderness, swelling, increased warmth or erythema. Elbows: Full range of motion without pain. No tenderness, weakness, swelling, increased warmth or erythema. Shoulders: Full range of motion without pain. No tenderness, weakness, swelling, increased warmth or erythema. Hips: Full range of motion without pain. Hip bursa:.??No tenderness. Knees:.???Normal pain-free range of motion without tenderness, swelling, increased warmth or erythema.?No effusion or crepitations Ankles:.??Normal pain-free range of motion without tenderness, swelling, increased warmth or erythema. Feet:.??Normal pain-free range of motion without tenderness, swelling, increased warmth or erythema. Tender points:??No tenderness to digital palpation at the occiput, trapezius, second rib, lateral epicondyle, knees, greater trochanter bilaterally, and left gluteal. Results Reviewed Results Reviewed: Laboratory Tests 04/17/24 14:17 Sodium 139 Potassium 4.1 Chloride 107 Carbon Dioxide 26 BUN 10 Creatinine 0.77 Calcium 9.7 Total Bilirubin 0.6 AST 13 ALT 8 Alkaline Phosphatase 34 L C-Reactive Protein < 0.10 25-OH Vitamin D Total 39 Rheumatoid Factor < 13.0 Cycl Citrul Peptide IgG <16 Sm (Camarena) Antibody <1.0 NEG U1 snRNA A Antibody <11 U1 snRNA C Antibody <11 U1 snRNA 70kD Antibody <11 SM/PLASTIC PROCESS TECHNICIAN IgG Antibody <1.0 NEG Scl-70 Scleroderma Ab <11 A-PM Scleroderma 75 Ab <11 A-PM Scleroderma 100 Ab <11 Double Strand DNA Ab <1 Th/To PLASTIC PROCESS TECHNICIAN Ab <11 U3-PLASTIC PROCESS TECHNICIAN (Fibrillarin) Ab <11 RNA Polymerase III RP11 Ab <11 RNA Polymerase III RP155 Ab <11 Centromere B Antibody <11 Centromere Protein A Ab <11 Complement C3 104 Complement C4 13 L XR Hands and Elbows (04/17/2024) X-rays of hands and elbows reviewed. No evidence of any significant abnormalities. We will await formal read by radiologist. Assessment & Plan Assessment & Plan (1) Low serum alkaline phosphatase: Code(s): R74.8 - Abnormal levels of other serum enzymes Category: Medical Plan: #Low ALP The differentials for low levels of alkaline phosphatase includes nutrient deficiencies such as a lack of zinc, magnesium another nutrients; malnutrition; hypothyroidism; pernicious anemia; Agapito's disease; and hypophosphatasia. Having low levels of ALP can cause symptoms of bone pain which could account for her symptoms. We will need to do further testing including zinc, magnesium levels, vitamin-C. Checking vitamin B6 levels. Checking TSH and copper serum levels. Also checking for vitamin B12 and folate. (2) Raynaud's disease without gangrene: Code(s): I73.00 - Raynaud's syndrome without gangrene Category: Medical Plan: #Primary Raynaud's At this time her diagnosis is of primary Raynaud's disease which is common in young women of childbearing age. This is not associated with any autoimmune disease at this time based on history and lab evaluations as well as examinations. Conservative management for her Raynaud's. Plan I spent 35 minutes reviewing the record and labs, seeing the patient, discussing the treatment plan and documenting in the medical record Orders: Orders TSH reflex Free T4 Today I73.00 - Raynaud's syndrome without gangrene, R74.8 - Abnormal levels of other serum enzymes Magnesium Today I73.00 - Raynaud's syndrome without gangrene, R74.8 - Abnormal levels of other serum enzymes Zinc Today I73.00 - Raynaud's syndrome without gangrene, R74.8 - Abnormal levels of other serum enzymes Intrinsic Factor Antibodies Today I73.00 - Raynaud's syndrome without gangrene, R74.8 - Abnormal levels of other serum enzymes Alkaline Phosphatase Today I73.00 - Raynaud's syndrome without gangrene, R74.8 - Abnormal levels of other serum enzymes Vitamin B6 Today I73.00 - Raynaud's syndrome without gangrene, R74.8 - Abnormal levels of other serum enzymes Ceruloplasmin Today I73.00 - Raynaud's syndrome without gangrene, R74.8 - Abnormal levels of other serum enzymes Copper, serum Today I73.00 - Raynaud's syndrome without gangrene, R74.8 - Abnormal levels of other serum enzymes Vitamin B12 and Folate Today I73.00 - Raynaud's syndrome without gangrene, R74.8 - Abnormal levels of other serum enzymes Vitamin C Today I73.00 - Raynaud's syndrome without gangrene, R74.8 - Abnormal levels of other serum enzymes Alkaline Phosphatase Bone Today I73.00 - Raynaud's syndrome without gangrene, R74.8 - Abnormal levels of other serum enzymes Alkaline Phosphatase Isoenzyme Today I73.00 - Raynaud's syndrome without gangrene, R74.8 - Abnormal levels of other serum enzymes Coding Level of Care Code Est Pt Level 4 (03184) Diagnoses Low serum alkaline phosphatase R74.8 Raynaud's disease without gangrene I73.00
== END 2024-05-06 10:46 | disposition home or self-care (01) ==
PROVIDERS: Visit Provider Student in an Organized Health Care Education/Training Program
DX: R74.8 Abnormal levels of other serum enzymes (principal); I73.00 Raynaud's syndrome without gangrene
CPT/HCPCS: 99214

== ENCOUNTER 2024-07-02 15:17 | Outpatient (REF) | payer MEDICARE, MEDICAID, SELFPAY | END 2024-07-02 15:18 | disposition home or self-care (01) | LOC: HO.LAB 15:17 | PROVIDERS: PCP Nurse Practitioner Primary Care; Visit Provider Student in an Organized Health Care Education/Training Program | DX: I10 Essential (primary) hypertension (principal) | CPT/HCPCS: 36415 ==

== ENCOUNTER 2024-07-16 10:59 | Outpatient (REF) | payer MEDICARE, MEDICAID, SELFPAY ==
--- OUTSIDE RECORDS SUMMARY | 2024-07-16 11:52 | XMS_ITS | Data Portability ---
Author Organization [place] - [facility], Allergy Address [address] [address] Assessment Encounter Date Assessment Date Assessment LastModified by Organization Details LastModified Time 01/14/2024 01/14/2024 Patient describes brief episode of watery rhinorrhea with head tilted forward. Discussed possible differential diagnosis of CSF rhinorrhea. Not associated with head trauma or meningitis symptoms. It has resolved prior to today's visit. A nasal endoscopy was performed with benign findings, no evidence of edema, polyps, irregular lesions in the nasal cavity. Reassurance was given. No specific intervention is recommended at this time. Also considered differential diagnosis of vasomotor rhinitis. Patient also does not describe any sensitivity to temperature changes as a triggering event for her nasal discharge. Allergies are also less likely as she is not sneezing or with any symptoms of itchy nose or watery eyes. Finally she had a unusual concern of headaches when she is laying supine. She describes the headaches are over her left eye and between her eyes. Discussed possibility of migraine, tension headache. She has worked with a neurologist without a active diagnosis. [email or web address] Not available 01/14/2024 11:28:46 Plan of Treatment Reminders Order Date Submit Date Provider Last Modified By Organization Details Last Modified Time Details Appointments None record ed. Lab None record ed. Referral None record ed. Procedures None record ed. Surgeries None record ed. Imaging None record ed. Medication Orders None record ed. Patient TargetsNo targets recorded. Patient InstructionsNo instructions recorded. Reason for Referral None Reported. Results Created Date Observation Date Name Description Value Unit Range Abnormal Flag Note LastModifiedBy Organization Detail LastModifiedTime 03/04/2003/26/2023 imagi ng/di agnos tic resul t No observ ation record ed. [email or web address] Not Available 19:42:40 Result Notes None recorded. Problems Name Problem SNOMED Code Status Onset Date Resolution Date Notes Provider Name and Address Organization Details Recorded Time Dysphagia 23380010 Active 2022 Dysphagia, pharyngoes ophageal phase; Note: Date Diagnosed: 02/12/2023 3:35 PM (R13.14) Not Available [facility] 4 02:13:55 Anterior rhinorrhe a 922782573 Active 2023 MARCY HERRON MD [address] [facility],[place] [address], [place], [address] , [facility] - [facility] 4 11:24:38 Chronic headache disorder 958520239 Active 2023 MARCY HERRON MD [address] [place] [address],[place] [address], [facility], [address] , [facility] 4 11:28:53 Problem Notes None recorded. Procedures Surgical History Date Name Laterality Status Provider Name and Address Organization Details Recorded Time 01/14/2024 NasalEndos copy_DP completed MARCY HERRON MD [address] [place] [address],[place] [address], [place], [address], [facility] 01/14/2024 11:24:22 Imaging Results Imaging Date Name Status LastModified by Organiz ation Details LastModified Time 03/26/2023 imaging/diag nostic result completed [email or web address] Information not available 03/04/2024 19:42:40 Procedure Notes None recorded. Medical Equipment None Reported. Allergies Allergen ID Allergen Name Allergen Category Reaction Reaction Severity Criticality Documentation Date Start Date Code Code System Note Provider Name and Address Organization Details Recorded Time 28586 Topamax medicatio n other Not available Not available 11/26/2023 13072 3 RxNorm React ion: Unkno wn; Not Available [facility] 4 00:48:42 87009 tramadol Not available other Not available Not available 11/26/2023 16068 RxNorm React ion: Unkno wn; Not Available [facility] 4 00:48:57 Medications Name Sig Start Date Stop Date Status Note LastModified by Organization Details LastModified Time multivitam in tablet active Medicatio n ID: [id number] Br and Name: multivita min Send Method: E-Prescri bed Subs Allowed: subs OK Medica tionGener icName: multivita min Not Available Not Available Not Available lamotrigin e 150 mg tablet TAKE 1 TABLET BY MOUTH EVERY DAY active Not Available Not Available No t Available clonidine HCl 0.1 mg tablet active Medicatio n ID: [id number] Br and Name: clonidine HCl Send Method: E-Prescri bed Subs Allowed: subs OK Medica tionGener icName: clonidine HCl Not Available Not Available Not Available Apri 0.15 mg-0.03 mg tablet TAKE 1 TABLET BY MOUTH EVERY DAY active Not Available Not Available No t Available cetirizine 10 mg tablet TAKE 1 TABLET BY MOUTH EVERY DAY active Not Available Not Available No t Available cefpodoxim e 200 mg tablet TAKE 1 TABLET BY MOUTH TWICE A DAY FOR 7 DAYS active Not Available Not Available No t Available Lidocaine Viscous 2 % mucosal solution active Medicatio n ID: [id number] Br and Name: Lidocaine Viscous S end Method: E-Prescri bed Subs Allowed: subs OK Medica tionGener icName: Lidocaine Viscous Not Available Not Available Not Available senna 8.6 mg tablet TAKE 1 TABLET BY MOUTH EVERY DAY active Not Available Not Available No t Available ondansetro n HCl 4 mg tablet active Medicatio n ID: [id number] Br and Name: ondansetr on HCl Send Method: E-Prescri bed Subs Allowed: subs OK Medica tionGener icName: ondansetr on HCl Not Available Not Available Not Available sumatripta n 50 mg tablet TAKE 50 MG BY MOUTH AT ONSET OF HEADACHE NEEDED. MAY REPEAT DOSE ONCE AFTER 2 HOURS, IF NEEDED. active Not Available Not Available No t Available methylphen idate ER 54 mg tablet,ext ended release 24 hr TAKE 1 TABLET BY MOUTH EVERY DAY active Not Available Not Available No t Available lamotrigin e 25 mg tablet active Medicatio n ID: [id number] Br and Name: lamotrigi ne Send Method: E-Prescri bed Subs Allowed: subs OK Medica tionGener icName: lamotrigi ne Not Available Not Available Not Available meloxicam 7.5 mg tablet TAKE 1 TABLET BY MOUTH EVERY DAY active Not Available Not Available No t Available propranolo l 40 mg tablet TAKE 1 TABLET BY MOUTH TWICE A DAY active Not Available Not Available No t Available dicyclomin e 20 mg tablet active Medicatio n ID: [id number] Br and Name: dicyclomi ne Send Method: E-Prescri bed Subs Allowed: subs OK Medica tionGener icName: dicyclomi ne Not Available Not Available Not Available benzonatat e 100 mg capsule active Medicatio n ID: [id number] Br and Name: benzonata te Send Method: E-Prescri bed Subs Allowed: subs OK Specia l Instructi on: TAKE 1 CAPSULE BY MOUTH THREE TIMES A DAY NEEDED FOR COUGH NOT COVERED * Medicat ionGeneri cName: benzonata te Not Available Not Available Not Available pantoprazo le 40 mg tablet,del ayed release TAKE 1 TAB DAILY IN AM ON EMPTY STOMACH, WAIT 30 MINS AND THEN EAT TO ACTIVATE THE MEDICATIO N active Not Available Not Available No t Available hydroxyzin e HCl 25 mg tablet active Medicatio n ID: [id number] Br and Name: hydroxyzi ne HCl Send Method: E-Prescri bed Subs Allowed: subs OK Medica tionGener icName: hydroxyzi ne HCl Not Available Not Available Not Available fluticason e propionate 50 mcg/actuat ion nasal spray,susp ension USE 1 SPRAY IN EACH NOSTRIL DAILY active Not Available Not Available No t Available lamotrigin e 100 mg tablet active Medicatio n ID: [id number] Br and Name: lamotrigi ne Send Method: E-Prescri bed Subs Allowed: subs OK Medica tionGener icName: lamotrigi ne Not Available Not Available Not Available naproxen 500 mg tablet TAKE 1 TABLET BY MOUTH DIRECTED NEEDED FOR MIGRAINE WITH SUMATRIPT AN active Not Available Not Available No t Available Ayla-Lanta 200 mg-200 mg-20 mg/5 mL oral suspension TAKE 15 ML BY MOUTH 4 TIMES DAILY NEEDED FOR OTHER. TAKE AT LEAST ONE DOSE AT BEDTIME active Not Available Not Available No t Available melatonin 5 mg tablet TAKE 1 TABLET DAILY AT NIGHT active Not Available Not Available No t Available lamotrigin e ER 200 mg tablet,ext ended release 24 hr TAKE 1 TABLET DAILY AT NIGHT active Not Available Not Available No t Available Myrbetriq 50 mg tablet,ext ended release TAKE 1 TABLET BY MOUTH EVERY DAY active Not Available Not Available No t Available Vitals Date Recorded Body height Body mass index (BMI) Body weight Provider Name and Address Organization Details Last Updated DateTime 01/14/2024 165.1 cm 20.8 kg/m2 03335.05 g Marcia Chavira [place] - [facility] 01/14/2024 10:46:09 Social History None recorded. Functional Status None recorded. Mental Status None recorded. Family History Nothing Reported. Medical History No medical history recorded. Gynecological HistoryNo gynecological history recorded. Obstetrics History GPAL:G 0 P 0 0 0 0 Past Encounters Encounter ID Performer Location Encounter Start Date Encounter Closed Date Diagnosis/Indication Diagnosis SNOMED-CT Code Diagnosis ICD10 Code [id number] MARCY HERRON MD [facility] [address] [address] 01/14/2024 10:42:55 01/14/2024 11:33:15 Anterior rhinorrhea 164386629 J34.89 Chronic he adache disorder 403015317 G44.89 Health Concerns Section Related Observation LastModified by Organization Detai ls LastModified Time None Recorded Concern Status LastModified by Organization Details LastModified Time None Recorded Advance Directives Directive None Recorded Payers Encounter Date Sequence Insurance Name Policy Number Policy Olvera Covered Member ID Olvera Member ID Guarantor Name 01/14/2024 2 [place] [facility] Joellen Diaz [id number] Joellen Diaz 01/14/2024 1 MEDICARE B-[place] [employer] [facility] Joellen Diaz [id number] Joellen Diaz Notes Date Note Type Note Provider Name and Address Organization Details Recorded Time 01/14/2024 text/html RIGHT nasal dripnotable with forward lean.about a tsp volume, clear mild saltyonset about 11/2023improved and resolved about 2 weeks agonot associated with head traumano headaches or photophobianot associated with temperature changes previously seen by Dr Jaramillo with dysphagia for solids which trigger a gag reflex.03/26/2023 Ba swallow [facility] was normaladvised f/u w GI MARCY HERRON MD [address] [place] [address], [address], [place] - [facility] 01/14/2024 11:29:12 OBGyn Episode No OBEpisode recorded.
== END 2024-07-16 11:00 | disposition home or self-care (01) ==
LOC: HO.LAB 10:59
PROVIDERS: PCP Nurse Practitioner Primary Care; Visit Provider Student in an Organized Health Care Education/Training Program
DX: E83.39 Other disorders of phosphorus metabolism (principal); R74.8 Abnormal levels of other serum enzymes
CPT/HCPCS: 81404; 81406; 81479